=== PATIENT | female | born 1955 | race Caucasian/White ===

== ENCOUNTER 2023-11-11 06:54 | Outpatient (CLI) | payer MEDICARE, OTHER ==
[2023-11-11 07:32] LABS: ABG BASE EXCESS 0.2 mmol/L (-2.0-2.0); ABG HCO3 23.2 mmol/L (22.0-26.0); ABG OXYGEN SATURATION 96.3 % (94-97); ABG PCO2 (T) 32.7 mmHg (32.0-45.0); ABG PH (T) 7.468 (7.350-7.450); ABG PO2 (T) 80.7 mmHg (75.0-100.0); ALLEN'S TEST POSITIVE; FCOHb 0.3 % (0.0-3.9); FHHb 3.7 % (0.0-5.0); FMetHb 0.1 % (0.0-1.5); FO2Hb 95.9 % (94-97); MODE ROOM AIR; TOTAL HEMOGLOBIN 13.7 G/dl (12.0-16.0)
== END 2023-11-11 23:59 | disposition home or self-care (01) ==
LOC: RT 06:54
PROVIDERS: ATTEND Internal Medicine Cardiovascular Disease
DX: R06.02 Shortness of breath (principal); R06.00 Dyspnea, unspecified
CPT/HCPCS: 36600; 82803; 85018; 94010; 94727; 94729